=== PATIENT | female | born 1970 ===

== ENCOUNTER 2016-08-28 21:19 | Emergency (ER) | payer SELFPAY ==
[2016-08-28 21:34] VITALS: BP 139/87; RESP 16; TEMP 98.3; O2SAT 100
--- NOTE | 2016-08-28 21:45 | ED PDOC ---
HPI: CCC, URI, Sore Throat Time Seen by Provider: 08/28/16 21:41 Chief Complaint (Nursing): Chest Pain Chief Complaint (Provider): Throat Pain History Per: Patient History/Exam Limitations: no limitations Have you had recent travel within the past 21 days to any of the following countries: [place], [place], [place] or [place]?: No Onset/Duration Of Symptoms: Days (x6) Current Symptoms Are (Timing): Still Present Sick Contacts (Context): None Associated Symptoms: Sore Throat, Cough (today only w/associated anterior chest wall pain), Nasal Congestion. denies: Fever, Chills, Sputum, Other (no shortness of breath) Severity: Moderate Additional Complaint(s): Danitza Garrison is a 46 year old female, with no pertinent past medical history, who presents to the ED on 08/28/16 for the evaluation of moderate throat pain that she has experienced x6 days. Associated nasal congestion and nonproductive cough (onset of today) also reported in addition to some cough-associated anterior chest wall pain. Denies fever, chills or shortness of breath. Has medicated with Tylenol and Motrin without relief. PMD: Dr. High (Clinic) Past Medical History Reviewed: Historical Data, Nursing Documentation, Vital Signs Vital Signs: Last Vital Signs Temp 98.3 F 08/28/16 21:31 Pulse 86 08/28/16 21:31 Resp 16 08/28/16 21:31 BP 139/87 08/28/16 21:31 Pulse Ox 100 08/28/16 22:28 - Medical History PMH: Arthritis - Surgical History Surgical History: Appendectomy, - Family History Family History: States: Unknown Family Hx - Home Medications Home Medications: Ambulatory Orders Medication Instructions Recorded Calcium Carbonate/Vitamin D3 1 tab PO BID 10/24/15 [Calcium + Vitamin D Tablet] Glucosamine/Chondroitin Sulf A 5 ml PO DAILY 10/24/15 [Glucosamine-Chondroitin Liq] Oxycodone HCl/Acetaminophen 1 tab PO Q6H PRN #10 tab 10/24/15 [Percocet 325 mg-5 mg] Ibuprofen [Motrin] 600 mg PO Q6 #20 tab 01/18/16 Cyclobenzaprine [Cyclobenzaprine 10 mg PO Q8 PRN #30 tab 07/20/16 HCl] Naproxen [Naprosyn] 500 mg PO BID PRN #30 tab 07/20/16 Benzocaine/Menthol [Cepacol Sore 1 each MM Q8 PRN #20 lozenge 08/28/16 Throat Lozenge] Ibuprofen [Motrin] 600 mg PO Q6 PRN #20 tab 08/28/16 - Allergies Allergies/Adverse Reactions: Allergies Allergy/AdvReac Type Severity Reaction Status Date / Time No Known Allergies Allergy Verified 10/13/15 15:03 Review of Systems ROS Statement: Except As Marked, All Systems Reviewed And Found Negative Constitutional: Negative for: Fever, Chills ENT: Positive for: Nose Congestion, Throat Pain Respiratory: Positive for: Cough (w/associated anterior chest wall pain). Negative for: Shortness of Breath, Sputum Physical Exam - Reviewed Nursing Documentation Reviewed: Yes Vital Signs Reviewed: Yes - Physical Exam Appears: Positive for: Non-toxic, No Acute Distress Head Exam: Positive for: ATRAUMATIC, NORMOCEPHALIC Skin: Positive for: Normal Color, Warm, Dry Eye Exam: Positive for: Normal appearance, PERRL ENT: Positive for: Pharyngeal Erythema. Negative for: Tonsillar Exudate, Tonsillar Swelling Neck: Positive for: Normal, Painless ROM, Supple Cardiovascular/Chest: Positive for: Regular Rate, Rhythm. Negative for: Murmur Respiratory: Positive for: Normal Breath Sounds. Negative for: Respiratory Distress Extremity: Positive for: Normal ROM. Negative for: Swelling Neurologic/Psych: Positive for: Alert, Oriented - ECG ECG: Positive for: Interpreted By Me, Viewed By Me ECG Rhythm: Positive for: Normal QRS, Normal ST Segment, Sinus Rhythm Rate: 90 O2 Sat by Pulse Oximetry: 100 (RA) Pulse Ox Interpretation: Normal - Radiology X-Ray: Interpreted by Me, Viewed By Me X-Ray Interpretation: No Acute Disease Medical Decision Making Medical Decision Makin:41 Initial Impression: URI Differential diagnoses also include but are not limited to bronchitis, Influenza , Strep. Initial Plan: * CXR * Influenza A B * Rapid Strep * Motrin 600mg PO * Percocet 1 tab PO * Reevaluation Scribe Attestation: Documented by Gita Ga, acting as a scribe for Maximiliano Sher MD. Provider Scribe Attestation: All medical record entries made by the Scribe were at my direction and personally dictated by me. I have reviewed the chart and agree that the record accurately reflects my personal performance of the history, physical exam, medical decision making, and the department course for this patient. I have also personally directed, reviewed, and agree with the discharge instructions and disposition. Disposition - Clinical Impression Clinical Impression: URI (upper respiratory infection), Pharyngitis - Patient ED Disposition Is Patient to be Admitted: No Doctor Will See Patient In The: Office Counseled Patient/Family Regarding: Studies Performed, Diagnosis, Need For Followup - Disposition Referrals: Maeve Odom MD [Primary Care Provider] - Disposition: Routine/Home Disposition Time: 23:54 Condition: GOOD Additional Instructions: Follow up with your PCP in 2-3 days. Prescriptions: Benzocaine/Menthol [Cepacol Sore Throat Lozenge] 1 each MM Q8 PRN #20 lozenge PRN Reason: Sore Throat Ibuprofen [Motrin] 600 mg PO Q6 PRN #20 tab PRN Reason: Sore Throat Instructions: Upper Respiratory Infection (ED)
[2016-08-28] MEDS ORDERED: Oxycodone/Acetaminophen 5/325 mg Tab PO STA (21:47)
[2016-08-28 23:57] VITALS: PULSE 90
--- NOTE | 2016-08-29 13:06 | RAD ---
HISTORY: cough COMPARISON: 10/01/2010 FINDINGS: LUNGS: No active pulmonary disease. PLEURA: No significant pleural effusion identified, no pneumothorax apparent. CARDIOVASCULAR: Normal. OSSEOUS STRUCTURES: No significant abnormalities. VISUALIZED UPPER ABDOMEN: Normal. OTHER FINDINGS: None. IMPRESSION: No active disease.
== END 2016-08-29 00:04 | disposition home or self-care (01) ==
LOC: H.ER 21:19
DX: J06.9 Acute upper respiratory infection, unspecified (principal); R07.9 Chest pain, unspecified; J02.9 Acute pharyngitis, unspecified; R05 Cough

== ENCOUNTER 2016-10-12 02:17 | Emergency (ER) | payer SELFPAY ==
[2016-10-12 02:33] VITALS: RESP 16; O2SAT 100
--- NOTE | 2016-10-12 03:12 | ED PDOC ---
HPI: Chest Pain Time Seen by Provider: 10/12/16 02:33 Chief Complaint (Nursing): Palpitations Chief Complaint (Provider): Palpitations History Per: Patient History/Exam Limitations: no limitations Onset/Duration Of Symptoms: Hrs (2) Current Symptoms Are (Timing): Better Severity: Mild Pain Scale Rating Of: 0 Additional Complaint(s): 46 y/o F with history of claustrophobia, b/l knee OA presents to ED with 2 hour history of palpitations. Patient reports waking up from sleep with a sensation of abnormal heart rate (alternating from rapid to slow) and tingling of her left hand. She denies associated fevers, chills, chest pain, diaphoresis, visual disturbances, focal weakness, changes in speech, abdominal pain, nausea or vomiting. She denies any recent surgeries or prolonged immobility. Patient recalls similar symptoms in the [place] with anxiety regarding mass transportation/ claustrophobia. 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 Past Medical History Vital Signs: Last Vital Signs Temp 98.6 F 10/12/16 02:30 Pulse 67 10/12/16 02:30 Resp 16 10/12/16 02:30 BP 132/74 10/12/16 02:30 Pulse Ox 100 10/12/16 03:17 - Medical History PMH: Arthritis - Surgical History Surgical History: Appendectomy, - Family History Family History: States: Unknown Family Hx - Home Medications Home Medications: Ambulatory Orders Medication Instructions Recorded Calcium Carbonate/Vitamin D3 1 tab PO BID 10/24/15 [Calcium 600-Vit D3 200 Tablet] Glucosamine/Chondroitin Sulf A 5 ml PO DAILY 10/24/15 [Glucosamine-Chondroitin Liq] Ibuprofen [Motrin Tab] 600 mg PO Q6 #20 tab 01/18/16 - Allergies Allergies/Adverse Reactions: Allergies Allergy/AdvReac Type Severity Reaction Status Date / Time No Known Allergies Allergy Verified 10/13/15 15:03 Wells Criteria for PE - Wells Criteria for Pulmonary Embolism Clinical Signs and Symptoms of DVT: No P.E is #1 Diagnosis, or Equally Likely: No Heart Rate >100: No Immobilization at least 3 days;Surgery previous 4 weeks: No Previous, objectively diagnosed PE or DVT: No Hemoptysis: No Malignancy w/treatment within 6 months, or palliative: No Total Score: 0 Review of Systems Constitutional: Negative for: Fever, Chills Eyes: Negative for: Vision Change Cardiovascular: Positive for: Palpitations. Negative for: Chest Pain, Edema, Light Headedness Gastrointestinal: Negative for: Nausea, Vomiting, Abdominal Pain, Diarrhea Genitourinary Female: Negative for: Dysuria, Frequency, Incontinence Physical Exam - Reviewed Nursing Documentation Reviewed: Yes Vital Signs Reviewed: Yes - Physical Exam Appears: Positive for: Well, No Acute Distress Head Exam: Positive for: ATRAUMATIC, NORMAL INSPECTION, NORMOCEPHALIC Skin: Positive for: Normal Color, Warm, Dry Eye Exam: Positive for: EOMI, PERRL ENT: Negative for: Pharyngeal Erythema, Tonsillar Exudate Cardiovascular/Chest: Positive for: Regular Rate, Rhythm. Negative for: Chest Non Tender, Edema, Murmur Respiratory: Positive for: Normal Breath Sounds. Negative for: Rales, Rhonchi, Wheezing Gastrointestinal/Abdominal: Positive for: Bowel Sounds (normal), Soft. Negative for: Tenderness, Distended, Guarding, Rebound Extremity: Positive for: Capillary Refill (<3s). Negative for: Pedal Edema, Calf Tenderness Neurologic/Psych: Positive for: Alert, sample hand II-XII (grossly intact.), Oriented ( x3), Other (Patient emotionally labile during exam, crying at times then smiling. ) - Laboratory Results Result Diagrams: 10/12/16 03:14 10/12/16 03:14 - ECG O2 Sat by Pulse Oximetry: 100 - Progress ED Course And Treament: 04:20 EKG reveals no acute ischemic changes CBC, CMP, Troponin, TSH all within normal limits Patient reports symptoms have improved Disposition - Clinical Impression Clinical Impression: Palpitations - Patient ED Disposition Is Patient to be Admitted: No Counseled Patient/Family Regarding: Studies Performed, Need For Followup - Disposition Disposition: Routine/Home Disposition Time: 04:27 Condition: IMPROVED Instructions: Palpitations (ED)
[2016-10-12 03:21] LABS: BASO # 0.1 K/uL (0.0-0.2); EOS # 0.1 K/uL (0.0-0.7); EOS % 1.6 % (0.0-4.0); HEMATOCRIT 35.6 % (34.0-47.0); LYMPH # 1.6 K/uL (1.0-4.3); LYMPH % 28.8 % (20.0-40.0); MEAN CELL VOLUME 87.6 fl (81.0-99.0); MEAN CORPUSCULAR HEMOGLOBIN 29.7 pg (27.0-31.0); MEAN PLATELET VOLUME 9.4 fl (7.2-11.7); MONO # 0.6 K/uL (0.0-0.8); MONO % 9.9 % (0.0-10.0); NEUT # 3.3 K/uL (1.8-7.0); NEUT % 58.7 % (50.0-75.0); NRBC % 0.1 % (0.0-0.0); RED CELL DISTRIBUTION WIDTH 13.9 % (11.5-14.5); WHITE BLOOD COUNT 5.7 K/uL (4.8-10.8)
[2016-10-12 03:28] LABS: ALB/GLOB RATIO 1.4 (1.0-2.1); ALKALINE PHOSPHATASE 82 U/L (38-126); ALT/SGPT 30 U/L (9-52); AST/SGOT 25 U/L (14-36); BILIRUBIN,TOTAL 0.2 mg/dl (0.2-1.3); BLOOD UREA NITROGEN 15 mg/dl (7-17); CALCIUM 8.8 mg/dL (8.4-10.2); CARBON DIOXIDE 27 mmol/L (22-30); CHLORIDE 107 mmol/L (98-107); GFR AFRICAN-AMERICAN > 60; GLUCOSE,RANDOM 104 mg/dL (65-105); POTASSIUM 4.1 MMOL/L (3.6-5.0); SODIUM 142 mmol/l (132-148)
[2016-10-12 03:58] LABS: THYROID STIMULATING HORMONE 1.53 mIU/ML (0.46-4.68)
[2016-10-12 04:48] VITALS: BP 132/79; PULSE 63; TEMP 98
== END 2016-10-12 04:53 | disposition home or self-care (01) ==
LOC: H.ER 02:17
DX: R00.2 Palpitations (principal)

== ENCOUNTER 2016-11-26 12:32 | Emergency (ER) | payer OTHER, SELFPAY ==
[2016-11-26 12:43] VITALS: BP 148/60; PULSE 78; RESP 19; TEMP 97.7; O2SAT 98
--- NOTE | 2016-11-26 13:23 | ED PDOC ---
HPI: Back Time Seen by Provider: 11/26/16 12:44 Chief Complaint (Nursing): Back Pain Chief Complaint (Provider): Back Pain History Per: Patient History/Exam Limitations: no limitations Onset/Duration Of Symptoms: Days (x7) Additional Complaint(s): Danitza Garrison, 46 year old female presents to the ED on 11/26/16 for bilateral lower back pain occurring for 1 week prior to arrival. The patient reports experiencing no trauma or any similar symptoms in the past. She took 2 tablets of 400 mg Motrin, with no relief, at 9:30 AM the morning prior to arrival. (-) numbness/tingling (-) bladder or bowel incontinence. (-) fever/chills Past Medical History Reviewed: Historical Data, Nursing Documentation, Vital Signs Vital Signs: Last Vital Signs Temp 97.7 F 11/26/16 12:40 Pulse 78 11/26/16 12:40 Resp 19 11/26/16 12:40 BP 148/60 11/26/16 12:40 Pulse Ox 98 11/26/16 12:40 - Medical History PMH: Anxiety, Arthritis - Surgical History Surgical History: Appendectomy, - Family History Family History: States: Unknown Family Hx - Social History Current smoker - smoking cessation education provided: No Ex-Smoker (has not smoked in the last 12 months): No Alcohol: Occasional Drugs: Denies - Home Medications Home Medications: Ambulatory Orders Medication Instructions Recorded Calcium Carbonate/Vitamin D3 1 tab PO BID 10/24/15 [Calcium 600-Vit D3 200 Tablet] Glucosamine/Chondroitin Sulf A 5 ml PO DAILY 10/24/15 [Glucosamine-Chondroitin Liq] Ibuprofen [Motrin Tab] 600 mg PO Q6 #20 tab 01/18/16 Cyclobenzaprine [Cyclobenzaprine 10 mg PO Q8H #20 tab 11/26/16 HCl] Ibuprofen [Motrin Tab] 800 mg PO Q6H PRN #20 tab 11/26/16 - Allergies Allergies/Adverse Reactions: Allergies Allergy/AdvReac Type Severity Reaction Status Date / Time No Known Allergies Allergy Verified 10/13/15 15:03 Review of Systems ROS Statement: Except As Marked, All Systems Reviewed And Found Negative Musculoskeletal: Positive for: Back Pain (bilateral lower back pain without radiation ) Physical Exam - Reviewed Nursing Documentation Reviewed: Yes Vital Signs Reviewed: Yes - Physical Exam Appears: Positive for: Non-toxic, No Acute Distress Head Exam: Positive for: ATRAUMATIC, NORMOCEPHALIC Skin: Positive for: Normal Color Eye Exam: Positive for: Normal appearance ENT: Positive for: Normal ENT Inspection Neck: Positive for: Normal Respiratory: Negative for: Accessory Muscle Use, Respiratory Distress Gastrointestinal/Abdominal: Positive for: Normal Exam, Bowel Sounds. Negative for: Guarding Back: Positive for: Normal Inspection, Other (pain with bilateral straight leg raise; no midline tendernes) Extremity: Positive for: Normal ROM Neurologic/Psych: Positive for: Alert - ECG O2 Sat by Pulse Oximetry: 98 (RA) Pulse Ox Interpretation: Normal Medical Decision Making Medical Decision Making: Initial Impression: Bilateral lower back pain Initial Plan: * Flexeril 10 mg PO Once Stat * Tylenol 325 mg tab 650 mg PO Once Stat * Reevaluation 1432 - Pt reports feeling better on re-evaluation. Scribe Attestation: Documented by Marva Hannon, acting as a scribe for Donna Rivas PA-C. Provider Scribe Attestation: All medical record entries made by the Scribe were at my direction and personally dictated by me. I have reviewed the chart and agree that the record accurately reflects my personal performance of the history, physical exam, medical decision making, and the department course for this patient. I have also personally directed, reviewed, and agree with the discharge instructions and disposition. Disposition - Clinical Impression Clinical Impression: Back pain - Patient ED Disposition Is Patient to be Admitted: No Counseled Patient/Family Regarding: Diagnosis, Need For Followup, Rx Given - Disposition Referrals: [facility] [Outside] Disposition: Routine/Home Disposition Time: 14:33 Condition: GOOD Prescriptions: Cyclobenzaprine [Cyclobenzaprine HCl] 10 mg PO Q8H #20 tab Ibuprofen [Motrin Tab] 800 mg PO Q6H PRN #20 tab PRN Reason: Pain Instructions: Acute Low Back Pain (ED) Print Language: MALAY
== END 2016-11-26 14:44 | disposition home or self-care (01) ==
LOC: H.ER 12:32
DX: M54.9 Dorsalgia, unspecified (principal); F41.9 Anxiety disorder, unspecified

== ENCOUNTER 2017-01-27 21:06 | Emergency (ER) | payer SELFPAY ==
[2017-01-27 21:12] VITALS: BP 121/78; PULSE 91; RESP 16; TEMP 98.5; O2SAT 100
--- NOTE | 2017-01-27 21:25 | ED PDOC ---
HPI: CCC, URI, Sore Throat Time Seen by Provider: 01/27/17 21:07 Chief Complaint (Nursing): ENT Problem Chief Complaint (Provider): ENT problem History Per: Patient History/Exam Limitations: no limitations Onset/Duration Of Symptoms: Days (5x) Current Symptoms Are (Timing): Still Present Associated Symptoms: Fever (99.4), Sore Throat, Cough, Other (generalized bodyaches) Severity: Moderate Additional Complaint(s): 46 year old female with no pertinent medical history presents to the ED with complaints of a sore throat for 5x days accompanied by a cough that developed 2x days ago, generalized body aches, and a fever of 99.4. She reports taking Motrin 7x hours prior to arrival with no relief. Patient denies having nausea, vomiting, and diarrhea. PMD: Not provided. Past Medical History Reviewed: Historical Data, Nursing Documentation, Vital Signs Vital Signs: Last Vital Signs Temp 98.5 F 01/27/17 21:10 Pulse 91 H 01/27/17 21:10 Resp 16 01/27/17 21:10 BP 121/78 01/27/17 21:10 Pulse Ox 100 01/27/17 21:30 - Medical History PMH: Anxiety, Arthritis - Surgical History Surgical History: Appendectomy, Other surgeries: tubal ligation - Family History Family History: States: Unknown Family Hx - Social History Current smoker - smoking cessation education provided: No Alcohol: Social Drugs: Denies - Home Medications Home Medications: Ambulatory Orders Medication Instructions Recorded Calcium Carbonate/Vitamin D3 1 tab PO BID 10/24/15 [Calcium 600-Vit D3 200 Tablet] Glucosamine/Chondroitin Sulf A 5 ml PO DAILY 10/24/15 [Glucosamine-Chondroitin Liq] Ibuprofen [Motrin Tab] 600 mg PO Q6 #20 tab 01/18/16 Cyclobenzaprine [Cyclobenzaprine 10 mg PO Q8H #20 tab 11/26/16 HCl] Ibuprofen [Motrin Tab] 800 mg PO Q6H PRN #20 tab 11/26/16 Azithromycin [Zithromax] 1 tab PO DAILY #6 tab 01/27/17 Ibuprofen [Motrin] 600 mg PO Q8 PRN #21 tab 01/27/17 Promethazine/Codeine 5 ml PO Q12 PRN #100 ml 01/27/17 [Codeine/Promethazine 10 MG/5 Ml-6.25 MG/5 Ml] - Allergies Allergies/Adverse Reactions: Allergies Allergy/AdvReac Type Severity Reaction Status Date / Time No Known Allergies Allergy Verified 01/27/17 21:10 Review of Systems ROS Statement: Except As Marked, All Systems Reviewed And Found Negative Constitutional: Positive for: Fever, Weakness ENT: Positive for: Throat Pain Respiratory: Positive for: Cough Gastrointestinal: Negative for: Nausea, Vomiting, Diarrhea Physical Exam - Reviewed Nursing Documentation Reviewed: Yes Vital Signs Reviewed: Yes - Physical Exam Appears: Positive for: Well, Non-toxic, No Acute Distress Head Exam: Positive for: ATRAUMATIC, NORMOCEPHALIC Skin: Positive for: Normal Color, Warm, Dry Eye Exam: Positive for: Normal appearance ENT: Positive for: Normal ENT Inspection (patient's voice is hoarse, otherwise ENT exam is normal.). Negative for: Pharyngeal Erythema, Tonsillar Exudate, Tonsillar Swelling Respiratory: Positive for: Normal Breath Sounds (lungs clear to auscultation bilaterally). Negative for: Respiratory Distress Neurologic/Psych: Positive for: Alert, Oriented (3x) - Laboratory Results Urine POC: Negative - ECG O2 Sat by Pulse Oximetry: 100 (RA) Pulse Ox Interpretation: Normal - Progress ED Course And Treament: CXR: ? HAZINESS NOTED RIGHT MEDIAL LOBE. PATIENT GIVEN TORADOL 30 MG IM X 1 DOSE STREP NEG Medical Decision Making Medical Decision Makin:07 Initial impression: 46 year old female with a sore throat. Initial plan: * urine * XRay chest 2 views * toradol 60 mg IM * rapid strep group a antigen * reevaluation Scribe Attestation: Documented by Lila Whitehead, acting as a scribe for Lucy Cerda PA-C. Provider Scribe Attestation: All medical record entries made by the Scribe were at my direction and personally dictated by me. I have reviewed the chart and agree that the record accurately reflects my personal performance of the history, physical exam, medical decision making, and the department course for this patient. I have also personally directed, reviewed, and agree with the discharge instructions and disposition. Disposition - Clinical Impression Clinical Impression: Bronchitis - Patient ED Disposition Is Patient to be Admitted: No - Disposition [facility]errals[facility] [[facility]] Disposition: Routine/Home Disposition Time: 22:00 Condition: FAIR Prescriptions: Azithromycin [Zithromax] 1 tab PO DAILY #6 tab Ibuprofen [Motrin] 600 mg PO Q8 PRN #21 tab PRN Reason: Pain, Moderate (4-7) Promethazine/Codeine [Codeine/Promethazine 10 MG/5 Ml-6.25 MG/5 Ml] 5 ml PO Q12 PRN #100 ml PRN Reason: Cough Instructions: Acute Bronchitis (ED) Forms: [employer] [facility] (Korean)
--- NOTE | 2017-01-28 11:27 | RAD ---
HISTORY: cough COMPARISON: Portable chest 08/28/2016. TECHNIQUE: Chest PA and lateral FINDINGS: LUNGS: No active pulmonary disease. PLEURA: No significant pleural effusion identified. No pneumothorax apparent. CARDIOVASCULAR: Normal. OSSEOUS STRUCTURES: No significant abnormalities. VISUALIZED UPPER ABDOMEN: Normal. OTHER FINDINGS: None. IMPRESSION: No acute cardiopulmonary disease appreciated or significant interval change 08/28/2016.
== END 2017-01-27 22:34 | disposition home or self-care (01) ==
LOC: H.ER 21:06
DX: J40 Bronchitis, not specified as acute or chronic (principal); F41.9 Anxiety disorder, unspecified
CPT/HCPCS: 71020; 81025; 87070; 87430; 96372; 99282; J1885

== ENCOUNTER 2017-02-19 13:37 | Emergency (ER) | payer OTHER, SELFPAY ==
[2017-02-19 13:47] VITALS: BP 118/65; PULSE 79; RESP 18; TEMP 98.1; O2SAT 98
[2017-02-19] MEDS ORDERED: Albuterol-Ipratrop 3 mg / 0.5 (3 ml) UD INH STA (14:54)
--- NOTE | 2017-02-19 14:54 | ED PDOC ---
HPI: CCC, URI, Sore Throat Time Seen by Provider: 02/19/17 14:30 Chief Complaint (Nursing): ENT Problem Chief Complaint (Provider): coughing/throat pain History Per: Patient (46 y/o female here with ongoing cough/sore throat x 1 month. Seen on 01/27/2017 with cxr/rapid strep. Was started on zpack for ? infiltrate noted on cxr. Was prescribed phenergan with codeine/ibuprofen. Seen by pmd subsequently with nasal spray/claritin. Notes persistent coughing and sore throat. ) Past Medical History Reviewed: Historical Data, Nursing Documentation, Vital Signs Vital Signs: Last Vital Signs Temp 98.1 F 02/19/17 13:42 Pulse 79 02/19/17 13:42 Resp 18 02/19/17 13:42 BP 118/65 02/19/17 13:42 Pulse Ox 98 02/19/17 14:54 - Medical History PMH: Anxiety, Arthritis - Surgical History Surgical History: Appendectomy, - Family History Family History: States: Unknown Family Hx - Home Medications Home Medications: Ambulatory Orders Medication Instructions Recorded Calcium Carbonate/Vitamin D3 1 tab PO BID 10/24/15 [Calcium 600-Vit D3 200 Tablet] Glucosamine/Chondroitin Sulf A 5 ml PO DAILY 10/24/15 [Glucosamine-Chondroitin Liq] Ibuprofen [Motrin Tab] 600 mg PO Q6 #20 tab 01/18/16 Cyclobenzaprine [Cyclobenzaprine 10 mg PO Q8H #20 tab 11/26/16 HCl] Ibuprofen [Motrin Tab] 800 mg PO Q6H PRN #20 tab 11/26/16 Azithromycin [Zithromax] 1 tab PO DAILY #6 tab 01/27/17 Ibuprofen [Motrin] 600 mg PO Q8 PRN #21 tab 01/27/17 Promethazine/Codeine 5 ml PO Q12 PRN #100 ml 01/27/17 [Codeine/Promethazine 10 MG/5 Ml-6.25 MG/5 Ml] Albuterol HFA [Ventolin HFA 90 2 puff IH [id number] PRN #1 inh 02/19/17 mcg/actuation (8 g)] Prednisone [Deltasone] 2 tab PO DAILY #10 tablet 02/19/17 - Allergies Allergies/Adverse Reactions: Allergies Allergy/AdvReac Type Severity Reaction Status Date / Time No Known Allergies Allergy Verified 01/27/17 21:10 Review of Systems ROS Statement: Except As Marked, All Systems Reviewed And Found Negative Physical Exam - Reviewed Nursing Documentation Reviewed: Yes Vital Signs Reviewed: Yes - Physical Exam Appears: Positive for: Well, Non-toxic, No Acute Distress Head Exam: Positive for: ATRAUMATIC, NORMAL INSPECTION, NORMOCEPHALIC Skin: Positive for: Normal Color, Warm, DRY Eye Exam: Positive for: EOMI, Normal appearance, PERRL ENT: Positive for: Normal ENT Inspection Neck: Positive for: Normal, Painless ROM Cardiovascular/Chest: Positive for: Regular Rate, Rhythm Respiratory: Positive for: CNT, Normal Breath Sounds Gastrointestinal/Abdominal: Positive for: Normal Exam, Bowel Sounds, Soft Back: Positive for: Normal Inspection Extremity: Positive for: Normal ROM Neurologic/Psych: Positive for: Alert, Oriented - ECG O2 Sat by Pulse Oximetry: 98 - Progress ED Course And Treament: RAPID STREP NEG DUONEB X 1 DOSE Disposition - Clinical Impression Clinical Impression: Bronchitis - Patient ED Disposition Is Patient to be Admitted: No - Disposition Disposition: Routine/Home Disposition Time: 15:43 Condition: FAIR Prescriptions: Albuterol HFA [Ventolin HFA 90 mcg/actuation (8 g)] 2 puff IH [id number] PRN #1 inh PRN Reason: Wheezing Prednisone [Deltasone] 2 tab PO DAILY #10 tablet Instructions: Acute Bronchitis (ED) Forms: [employer] (English) Print Language: [place]IZ[place]
[2017-02-19] MEDS ORDERED: Albuterol-Ipratrop 3 mg / 0.5 (3 ml) UD ONE (15:01)
== END 2017-02-19 16:40 | disposition home or self-care (01) ==
LOC: H.ER 13:37
DX: J20.9 Acute bronchitis, unspecified (principal)

== ENCOUNTER 2017-07-27 22:11 | Emergency (ER) | payer SELFPAY ==
--- NOTE | 2017-07-27 22:19 | ED PDOC ---
Lower Extremity Pain/Injury Time Seen by Provider: 07/27/17 22:17 Chief Complaint (Provider): knee pain History Per: Patient Additional Complaint(s): 47-year-old female with history of chronic left knee pain presents to emergency Department with redness and swelling to left knee. Patient received third injection to left knee at the clinic last Wednesday and the day after she noticed redness and swelling to injection site. Patient states redness and swelling have worsened prompting ED visit today. She denies fever or chills, no active drainage or bleeding from the affected area. Patient states area is very itchy and somewhat painful. PMD: [facility] Past Medical History Reviewed: Historical Data, Nursing Documentation, Vital Signs - Medical History PMH: Anxiety, Arthritis - Surgical History Surgical History: Appendectomy, - Family History Family History: States: No Known Family Hx - Living Arrangements Living Arrangements: With Family - Social History Current smoker - smoking cessation education provided: No Alcohol: None Drugs: Denies - Home Medications Home Medications: Ambulatory Orders Medication Instructions Recorded Calcium Carbonate/Vitamin D3 1 tab PO BID 10/24/15 [Calcium 600-Vit D3 200 Tablet] Glucosamine/Chondroitin Sulf A 5 ml PO DAILY 10/24/15 [Glucosamine-Chondroitin Liq] Ibuprofen [Motrin Tab] 600 mg PO Q6 #20 tab 01/18/16 Cyclobenzaprine [Cyclobenzaprine 10 mg PO Q8H #20 tab 11/26/16 HCl] Ibuprofen [Motrin Tab] 800 mg PO Q6H PRN #20 tab 11/26/16 Azithromycin [Zithromax] 1 tab PO DAILY #6 tab 01/27/17 Ibuprofen [Motrin] 600 mg PO Q8 PRN #21 tab 01/27/17 Promethazine/Codeine 5 ml PO Q12 PRN #100 ml 01/27/17 [Codeine/Promethazine 10 MG/5 Ml-6.25 MG/5 Ml] Albuterol HFA [Ventolin HFA 90 2 puff IH [id number] PRN #1 inh 02/19/17 mcg/actuation (8 g)] Cetirizine HCl [Zyrtec] 10 mg PO DAILY #14 tab.rapdis 02/19/17 Naproxen [Naprosyn] 500 mg PO Q12 PRN #14 tablet 02/19/17 Prednisone [Deltasone] 2 tab PO DAILY #10 tablet 02/19/17 Clindamycin [Cleocin] 300 mg PO TID #21 cap 07/27/17 Ibuprofen [Motrin Tab] 800 mg PO Q8 PRN #20 tab 07/27/17 - Allergies Allergies/Adverse Reactions: Allergies Allergy/AdvReac Type Severity Reaction Status Date / Time No Known Allergies Allergy Verified 01/27/17 21:10 Wells Criteria for PE - Wells Criteria for Pulmonary Embolism Clinical Signs and Symptoms of DVT: No P.E is #1 Diagnosis, or Equally Likely: No Heart Rate >100: No Immobilization at least 3 days;Surgery previous 4 weeks: No Previous, objectively diagnosed PE or DVT: No Hemoptysis: No Malignancy w/treatment within 6 months, or palliative: No Total Score: 0 Review of Systems ROS Statement: Except As Marked, All Systems Reviewed And Found Negative Musculoskeletal: Positive for: Other (redness and swelling to left knee at injection site) Physical Exam - Reviewed Nursing Documentation Reviewed: Yes Vital Signs Reviewed: Yes - Physical Exam Appears: Positive for: Well, Non-toxic, No Acute Distress Skin: Negative for: Rash Eye Exam: Positive for: Normal appearance Extremity: Positive for: Other (Localized erythema and swelling noted to the lateral aspect of left patella, full range of motion of left knee, no erythematous streaking, no abscess formation, no active bleeding or drainage) Neurologic/Psych: Positive for: Alert, Oriented - ECG O2 Sat by Pulse Oximetry: 100 Pulse Ox Interpretation: Normal Medical Decision Making Medical Decision Makin-year-old female with infection to injection site of left knee Plan: Motrin 600 mg PO Initial dose clindamycin 300 mg PO Hydrocortisone cream 2.5% Patient given prescriptions for Motrin and clindamycin. She was advised to apply cream twice a day for 7 days. Patient was instructed to follow up with clinic. Disposition - Clinical Impression Clinical Impression: Infection of injection site - Patient ED Disposition Is Patient to be Admitted: No Counseled Patient/Family Regarding: Diagnosis, Need For Followup, Rx Given - Disposition Referrals: [facility] [Outside] Disposition: Routine/Home Disposition Time: 22:43 Condition: STABLE Additional Instructions: Apply cream twice a day to affected area for 7 days. Take antibiotics as directed. Follow up with clinic in 2-3 days. Prescriptions: Clindamycin [Cleocin] 300 mg PO TID #21 cap Ibuprofen [Motrin Tab] 800 mg PO Q8 PRN #20 tab PRN Reason: Pain, Moderate (4-7) Instructions: Wound Infection Forms: [facility] (Sinhala) Print Language: LAO
[2017-07-27 22:25] VITALS: BP 113/55; PULSE 96; RESP 16; TEMP 98.5; O2SAT 100; BMI 27.4
== END 2017-07-27 23:35 | disposition home or self-care (01) ==
LOC: H.ER 22:11
DX: T81.4XXA Infection following a procedure, initial encounter (principal); F41.9 Anxiety disorder, unspecified